=== PATIENT | male | born 1960 | race Caucasian/White ===

== ENCOUNTER 2017-06-29 09:08 | Day surgery (SDC) | payer OTHER ==
[~2017-06-29] VITALS: Ht 185.4 cm; Wt 74.0 kg
[2017-06-29] VITALS (15 sets, daily range): BP systolic 87–119; BP diastolic 56–79; PULSE 55–67; RESP 9–18; Ht 185.4 cm; Wt 74.0 kg
[2017-06-29] MEDS ORDERED: RANI150T9 PO (09:49)
[2017-06-29] MEDS ORDERED: SOD CHLORIDE 0.9% 1,000 ML IV SCH (11:30)
[2017-06-29] MEDS ORDERED: CEFAZOLIN 2 GM/50 ML (PMX) 50 ML IVPB ONE (11:30)
[2017-06-29] MEDS ORDERED: BUPIVACAINE 0.25% (MPF) 30 ML INJ ONE (12:13)
[2017-06-29] MEDS ORDERED: POLYMYXIN/BACITRACIN 1L IRRIG ONE (12:13)
[2017-06-29] MEDS ORDERED: PROPOFOL 20 ML ONE (12:39)
[2017-06-29] MEDS ORDERED: CEFAZOLIN 1 GM INJ ONE (12:39)
[2017-06-29] MEDS ORDERED: LIDOCAINE 2% (SDV) 5 ML INJ ONE (12:39)
[2017-06-29] MEDS ORDERED: MIDAZOLAM 1 MG/ML 2 ML INJ ONE (12:40)
[2017-06-29] MEDS ORDERED: MEPERIDINE 100 MG INJ ONE (12:40)
[2017-06-29] MEDS ORDERED: ONDANSETRON 4 MG INJ ONE (13:12)
--- NOTE | 2017-06-29 13:36 | SIPON ---
Date/Time of Note Date/Time of Note DATE: 06/29/17 TIME: 13:35 Operative Report Preoperative Diagnosis left inguinal hernia Postoperative Diagnosis same Operation/Procedure Performed 1. open left inguinal hernia repair with medium size ultrapro hernia system mesh 2. 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
[2017-06-29] MEDS: FENTAnyl 50 MCG/ML VIAL IV PRN ×2 (13:58→14:07)
[2017-06-29] MEDS ORDERED: LABETALOL HCL 20MG INJ IV PRN (14:00)
[2017-06-29] MEDS ORDERED: ONDANSETRON 4 MG INJ IV PRN (14:00)
[2017-06-29] MEDS ORDERED: hydrALAzine 20 MG INJ IV PRN (14:00)
[2017-06-29] MEDS ORDERED: METOCLOPRAMIDE 10 MG INJ IV PRN (14:00)
[2017-06-29] MEDS ORDERED: OXYCODONE/ACETAMINOPHEN (5/325) TAB PO PRN ×2 (14:00)
[2017-06-29] MEDS ORDERED: EPHEDrine SULFATE 50 MG/5 ML SYG IV PRN (14:00)
[2017-06-29] MEDS ORDERED: MIDAZOLAM 1 MG/ML 2 ML INJ IV PRN (14:00)
[2017-06-29] MEDS ORDERED: HYDROmorphONE (0.2 MG/ML) 10ML SYG IV PRN ×3 (14:00)
[2017-06-29] MEDS ORDERED: HYDROCODONE/APAP (5/325) TAB PO ONE (14:00)
[2017-06-29] MEDS ORDERED: MEPERIDINE 25 MG INJ IV PRN (14:00)
[2017-06-29] MEDS ORDERED: FENTAnyl 50 MCG/ML VIAL IV PRN ×2 (14:00)
[2017-06-29] MEDS ORDERED: DIPHENHYDRAMINE 50 MG INJ IV PRN (14:00)
--- NOTE | 2017-06-29 17:14 | OPR ---
DATE OF OPERATION: 06/29/2017 INDICATION: This is a 56-year-old male with a left inguinal hernia. He requests surgical repair. Risks, alternatives, benefits, and personnel were discussed with the patient. The patient expressed understanding and consents to the operation. PREOPERATIVE DIAGNOSIS: Left inguinal hernia. POSTOPERATIVE DIAGNOSIS: Indirect left inguinal hernia. PROCEDURE PERFORMED: Left inguinal hernia repair. SURGEON: CONNER DREW MD. SPECIMEN: None. COMPLICATIONS: None. ANESTHESIA: General. ESTIMATED BLOOD LOSS: 10 mL. DESCRIPTION OF PROCEDURE: The patient was taken to the OR and prepped and draped in the usual steri le fashion. Surgical timeout was performed. IV antibiotics were given. Left inguinal oblique inci nadege is made with a 10 blade. Dissection cautery was carried down to external oblique fascia. The cyst opened with a 15 blade and this incision is extended medial inferiorly and lateral superiorly w ith Metzenbaum scissors. Cord structures were identified and encircled with a Baldo drain. Indir ect hernia was identified and reduced. This area was bolstered with the disk portion of the UltraPr o hernia system mesh. This mesh is secured in place with a running 0 Prolene from the pubic tubercl e along the shelving edge of the inguinal ligament and superiorly to the internal oblique with inter rupted 3-0 Vicryl. Onlay mesh is secured in similar fashion with a running 0 Prolene from the pubic tubercle along the shelving edge of the inguinal ligament. Straps are created and reapproximated a round the cord structures to recreate the inguinal ring with interrupted 0 Prolene. Onlay mesh was secured to internal oblique with interrupted 3-0 Vicryl. External oblique fascia was closed with a running 3-0 Vicryl. Jeff's fascia was closed with interrupted 3-0 Vicryl. Skin is closed with sk in christina. Therapeutic subcutaneous local anesthesia was injected throughout the incision. Dry dr essings were applied. Dictated By: CONNER DREW MD SB/[place] Conf#: [id number] DID#: [id number]
== END 2017-06-29 15:31 | disposition home or self-care (01) ==
LOC: SDS 09:08
PROVIDERS: ATTEND Surgery
DX: K40.90 Unilateral inguinal hernia, without obstruction or gangrene, not specified as recurrent (principal); K21.9 Gastro-esophageal reflux disease without esophagitis
CPT/HCPCS: 49505; C1781; J0690; J2175; J2250; J2405; J2765; J3010; Z7512; Z7610